=== PATIENT | female | born 1985 | race Two or more races ===

== ENCOUNTER 2023-12-19 11:07 | Outpatient (CLI) | payer OTHER | END 2023-12-19 11:08 | disposition home or self-care (01) | LOC: PRENATAL 11:07 | PROVIDERS: ATTEND Obstetrics & Gynecology Maternal & Fetal Medicine | DX: O26.843 Uterine size-date discrepancy, third trimester (principal); O09.523 Supervision of elderly multigravida, third trimester; O26.873 Cervical shortening, third trimester; Z3A.28 28 weeks gestation of pregnancy ==

== ENCOUNTER 2024-01-24 09:30 | Outpatient (CLI) | payer OTHER | END 2024-01-24 09:31 | disposition home or self-care (01) | LOC: PRENATAL 09:30 | PROVIDERS: ATTEND Obstetrics & Gynecology Maternal & Fetal Medicine | DX: O26.843 Uterine size-date discrepancy, third trimester (principal); O36.8130 Decreased fetal movements, third trimester, not applicable or unspecified; O09.523 Supervision of elderly multigravida, third trimester; Z3A.34 34 weeks gestation of pregnancy ==